=== PATIENT | female | born 1995 | race Caucasian/White ===

== ENCOUNTER → 2016-11-01 | Outpatient (CLI) | payer BC ==
[2016-11-01 13:16] VITALS: BP 107/66
== END ==
LOC: MHUC 12:58
PROVIDERS: ATTEND Physician Assistant
DX: J01.00 Acute maxillary sinusitis, unspecified (principal); H10.33 Unspecified acute conjunctivitis, bilateral
CPT/HCPCS: 99213

== ENCOUNTER → 2017-01-22 | Outpatient (CLI) | payer BC ==
[~2017-01-22] MED LIST: AZIT250T81 PO; POLY10DR OP; PRED20TA PO; SULF-221 PO
[2017-01-22 15:39] VITALS: BP 103/65
--- NOTE | 2017-01-22 15:39 | Urgent Care T Sheet Gen (E) ---
Intake General Temperature (Fahrenheit): 99.3 Pulse: 61 Blood Pressure Systolic: 103 Blood Pressure Diastolic: 65 Respirations: 18 SPO2: 97 Description of Symptoms Patient presents with possible spider bite to the ear. First noticed the L ear was red and painful last night. Patient was outside hunting yesterday and initially thought it was a mosquito bite. However, as the day and night progressed, the area became painful and stinging, not itchy like a mosquito bite. Woke up this AM with a red, swollen and hot L ear. Nurse at work thought she saw a puncture ede. No meds. History of Present Illness Home Meds Active Scripts Sulfamethoxazole/Trimethoprim (Sulfamethoxazole/Trimethoprim DS 800mg/160mg)1 Each Tablet1 Each PO BID #14 TAB Prov:SANA MARTÍNEZ 01/22/17 Azithromycin (Zithromax Z-Stuart)6 Tab/Pkt [id number] Mg PO SEE INSTRUCTIONS #6 TAB Ref 0 Day One: Take 2 tablets by mouth Days Two-Five: Take 1 tablet by mouth Prov:SANA MARTÍNEZ 11/01/16 Polymyxin B Sulfate/Tmp (Polytrim Eye Drops)10 Ml Drops1 Drop OP QID #1 BTL 1 drop in each eye QID x 7 days Prov:SANA MARTÍNEZ 11/01/16 Prednisone 20 Mg Uhzoev69 Mg PO BID #6 TAB Prov:SANA MARTÍNEZ 07/31/16 Respiratory Constitutional Symptoms: No syptoms reported EENTM: No symptoms reported Respiratory: No symptoms reported Cardiovascular: No symptoms reported Skin: Change in color Lesions All Other Systems Reviewed Remaining Systems: All other systems reviewed with negative findings Physical Exam Physical Exam General Appearance: WD/WN No apparent distress Skin Exam: Other (examination of the L ear reveals edema and redness to the entire ear. I don't see a bite ede however the area where the patient states it ng the most is quite red. entire ear is warm to the touch.) Departure Urgent Care Impression Impression: Primary Impression: Insect bite Qualified Code: W57.XXXA - Bitten or stung by nonvenomous insect and other nonvenomous arthropods, initial encounter Departure Disposition: 01 HOME OR SELF-CARE Condition: Stable Additional Instructions: The patient appears to be having some sort of reaction to an insect bite. I have started her on Bactrim for treatment. Encourage cold compress, Benadryl and Ibuprofen. Return as needed Patient understands DC instructions. All questions were answered. Scripts Sulfamethoxazole/Trimethoprim (Sulfamethoxazole/Trimethoprim DS 800mg/160mg)1 Each Tablet1 Each PO BID #14 TAB Prov:SANA MARTÍNEZ 01/22/17 End of report . SANA MARTÍNEZ January 22, 2017 14:36
== END ==
LOC: MHUC 14:18
PROVIDERS: ATTEND Physician Assistant
DX: S00.462A Insect bite (nonvenomous) of left ear, initial encounter (principal); W57.XXXA Bitten or stung by nonvenomous insect and other nonvenomous arthropods, initial encounter
CPT/HCPCS: 99212